=== PATIENT | female | born 1955 | race Caucasian/White ===

== ENCOUNTER 2017-03-25 08:40 | Outpatient (CLI) | payer MEDICARE ==
[2017-03-25 09:04] LABS: #Basophils 0.1 thou/uL (0.0-0.2); #Eosinphils 0.4 thou/uL (0.0-0.7); #Lymphocytes 2.2 thou/uL (1.20-3.40); #Monocytes 0.5 thou/uL (0.11-0.59); #Neutrophils 3.5 thou/uL (1.40-6.50); %Basophils 1.1 % (0.0-1.0); %Eosinophils 5.5 % (0.0-10.0); %Lymphocytes 33.3 % (21.0-51.0); %Monocytes 7.6 % (0.0-10.0); %Neutrophils 52.6 % (42.0-75.0); Hemoglobin 12.9 g/dL (12.0-16.0); Mean Corpuscular Hemoglobin 30.5 pg (27.0-31.0); Mean Corpuscular Volume 95.2 fl (81.0-99.0); Mean Platelet Volume 9.1 fL (7.4-10.4); Platelet Count 229 thou/uL (130-400); RBC Distribution Width 13.4 % (11.5-14.5); Red Blood Cell (RBC) Count 4.24 mill/uL (4.20-5.40); White Blood Cell (WBC) Count 6.6 thou/uL (4.8-10.8)
[2017-03-25 09:26] LABS: ALT (SGPT) 16 U/L (8-55); AST (SGOT) 14 U/L (5-34); Albumin 4.2 g/dL (3.5-5.0); Alkaline Phosphatase 78 U/L (40-150); Anion Gap 14 mmol/L (10-20); BUN (Urea Nitrogen) 17 mg/dL (9.8-20.1); Bilirubin, Total 0.4 mg/dL (0.2-1.2); Calc. Creatinine Clearance 0 mL/min (70-130); Calcium 9.2 mg/dL (7.8-10.44); Carbon Dioxide 27 mmol/L (22-29); Chloride 104 mmol/L (98-107); Estimated GFR-MDRD 68; Globulin 2.9 g/dL (2.4-3.5); Glucose 95 mg/dL (70-105); Magnesium 2.1 mg/dL (1.6-2.6); Potassium 4.9 mmol/L (3.5-5.1); Protein, Total 7.1 g/dL (6.0-8.3); Sodium 140 mmol/L (136-145)
[2017-03-25 10:06] LABS: Free T4 (Free Thyroxine) 0.85 ng/dL (0.70-1.48); Thyroid Stimulating Hormone 6.9652 uIU/mL (0.35-4.94)
--- NOTE | 2017-03-25 11:18 | ULT ---
ABDOMEN ULTRASOUND: Date: 03/25/17 HISTORY: Epigastric and right upper quadrant pain. COMPARISON: 11/10/08. TECHNIQUE: Utilizing a multihertz transducer, sonographic imaging of the abdomen is performed in the longitudin al and transverse plane. FINDINGS: The head of the pancreas has a normal echotexture. The remainder of the pancreas is obscured by rozina l gas. Visualized IVC and aorta are unremarkable. Increased echogenicity of the liver due to hepatic steatosis or hepatocellular disease. Subsequent e valuation for hepatic masses and intrahepatic biliary dilatation is limited. Within the lumen of the gallbladder, there is solitary echogenic focus with posterior acoustic shado wing, compatible with a gallstone measuring 1.9 x 1.9 x 1.8 cm. Gallbladder wall is not thickened. T here is no pericholecystic fluid. However, there is a positive Rosales's sign. Bilaterally, no hydronephrosis. There is bilateral renal cortical thinning. Right kidney measures 1 0.9 x 3.8 x 3.6 cm. Left kidney measures 10.1 x 4.5 x 5.0 cm. Evaluation of the spleen is limited. Splenic dimension is 9.1 cm. IMPRESSION: 1. Sonographic evidence of cholelithiasis with findings that are equivocal for cholecystitis. Gallb ladder wall is not thickened. There is no pericholecystic fluid. However, disability benefits specialist does report a positive Rosales's sign. Consider HIDA scan. 2. Increased echogenicity of the liver due to hepatic steatosis or hepatocellular disease. Correlat e clinically. POS: [facility]
[2017-03-25 12:24] LABS: Vitamin D, 25 Hydroxy 33.6 ng/ml (> 30.0)
[2017-03-25 18:19] LABS: Vitamin B12 Greater than 2000 pg/mL (211-911)
== END 2017-03-25 08:41 | disposition home or self-care (01) ==
LOC: MADLAB 08:40
PROVIDERS: ATTEND Family Medicine
DX: R10.11 Right upper quadrant pain (principal); K80.20 Calculus of gallbladder without cholecystitis without obstruction; R10.13 Epigastric pain; M79.7 Fibromyalgia; I77.6 Arteritis, unspecified; I10 Essential (primary) hypertension; I73.00 Raynaud's syndrome without gangrene
CPT/HCPCS: 36415; 76700; 80050; 82306; 82607; 82746; 83735; 84439; 84481

== ENCOUNTER 2019-02-03 09:52 | Outpatient (CLI) | payer MEDICARE ==
--- NOTE | 2019-02-03 10:27 | CT ---
Exam: CT LUMBAR SPINE WITHOUT CONTRAST: HISTORY: Traumatic spondylopathy. Low back pain. COMPARISON: None. FINDINGS: Visualized alimentary canal and solid organs are grossly unremarkable. Bilaterally, no obstructive ur opathy. No retroperitoneal or paraspinal mass, lymphadenopathy, or hematoma. 5 lumbar type vertebra. Vertebral body height is maintained. No fracture. Subtle sclerotic lesion at the L1 vertebral body may represent a 5 mm hemangioma. Lesion is unchanged since December 2008. T11-T12 and T12-L1: No significant central canal stenosis or neural foraminal narrowing. L1-L2: No significant central canal stenosis or foraminal narrowing. L2-L3: No significant central canal stenosis or foraminal narrowing. L3-L4: Generalized disc bulge, ligament flavum thickening and facet hypertrophy result in mild centra l canal stenosis. Mild bilateral foraminal narrowing. L4-L5: No significant posterior disc abnormality. Mild ligamentum flavum thickening and facet hypertr ophy result in mild central canal stenosis. Bilaterally, neural foramina are patent L5-S1: Vacuum disc phenomenon with endplate changes. Generalized disc bulge does not cause any signif icant stenosis of the thecal sac. However, there does appear to be disc material in the left subarticular zone with partial obscuration the traversing left S1 nerve root. Right subarticular zone is unremarkable. Moderate bilateral neural foraminal narrowing. IMPRESSION: 1. No fracture. 2. Degenerative change at L5-S1 as described above. Narrowing of the left subarticular zone secondary to disc material. There is presumed mass effect with partial obscuration of traversing left S1 nerve root. 3. Moderate bilateral foraminal narrowing at L5-S1. Transcribed Date/Time: 02/03/2019 10:36 AM
== END 2019-02-03 09:53 | disposition home or self-care (01) ==
LOC: MADCT 09:52
PROVIDERS: ATTEND Family Medicine
DX: M48.37 Traumatic spondylopathy, lumbosacral region (principal); M47.817 Spondylosis without myelopathy or radiculopathy, lumbosacral region; M48.07 Spinal stenosis, lumbosacral region
CPT/HCPCS: 72131

== ENCOUNTER 2020-01-17 07:43 | Outpatient (CLI) | payer MEDICARE ==
--- NOTE | 2020-01-17 08:25 | ULT ---
EXAM: US Gallbladder RUQ CLINICAL HISTORY: Right upper quadrant pain. Evaluate for gallstone. COMPARISON: None. FINDINGS: Pancreas: The head and proximal pancreatic body have a normal echotexture. The remainder of the panc reas is obscured by bowel gas Liver:Homogeneous hepatic parenchymal echotexture. Evaluate for hepatic masses and intrahepatic bilia ry dilatation is limited. Gallbladder: Multiple echogenic foci within the gallbladder, consistent with gallstones. Largest calc ulus measures at least 2.2 cm. Gallbladder wall is not thickened. No pericholecystic fluid Rosales's sign:Positive Portal Vein: Patent. Appropriate directional flow Bile ducts: Suboptimal evaluation the common bile duct Right kidney: No hydronephrosis. Right kidney measures 11.2 cm in maximum dimension. IMPRESSION: 1. Sonographic evidence of cholelithiasis. Positive Rosales's sign. Consider HIDA scan for further haley luation 2. Heterogeneous hepatic parenchymal echotexture which may be due to hepatic steatosis or hepatocellu lar disease. If is concern for hepatic masses, consider abdomen MRI
== END 2020-01-17 07:44 | disposition home or self-care (01) ==
LOC: MADULT 07:43
PROVIDERS: ATTEND Family Medicine
DX: K80.71 Calculus of gallbladder and bile duct without cholecystitis with obstruction (principal)
CPT/HCPCS: 76705

== ENCOUNTER 2021-08-07 12:56 | Outpatient (CLI) | payer MEDICARE | END 2021-08-07 12:57 | disposition home or self-care (01) | LOC: MADRAD 12:56 | PROVIDERS: ATTEND Family Medicine | DX: J18.9 Pneumonia, unspecified organism (principal) | CPT/HCPCS: 71046 ==

== ENCOUNTER 2023-04-01 14:31 | Outpatient (CLI) | payer MEDICARE, OTHER | END 2023-04-01 14:32 | disposition home or self-care (01) | LOC: MADRAD 14:31 | PROVIDERS: ATTEND Neurological Surgery | DX: M47.816 Spondylosis without myelopathy or radiculopathy, lumbar region (principal); Z98.1 Arthrodesis status | CPT/HCPCS: 72100 ==

== ENCOUNTER 2023-05-22 09:36 | Outpatient (CLI) | payer MEDICARE, OTHER | END 2023-05-22 09:37 | disposition home or self-care (01) | LOC: MADRAD 09:36 | PROVIDERS: ATTEND Neurological Surgery | DX: M54.16 Radiculopathy, lumbar region (principal); Z98.890 Other specified postprocedural states | CPT/HCPCS: 72100 ==